=== PATIENT | female | born 1995 | race Caucasian/White ===

== ENCOUNTER 2016-06-15 11:34 | Emergency (ER) | payer OTHER ==
[2016-06-15 20:00] LABS: Hematocrit 39 % (35-47); Hemoglobin 13.1 g/dl (12.0-16.0); Mean Corpuscular HGB Conc 33 g/dl (31-36); Mean Corpuscular Hemoglobin 29 pg (27-31); Mean Corpuscular Volume 88 fL (80-97); Mean Platelet Volume 8 um3 (7.4-10.4); Red Cell Distribution Width 13 % (10.5-15); White Blood Count 11.3 10^3/ul (3.5-10.8)
[2016-06-15 20:19] LABS: ALT 10 U/L (7-52); AST 15 U/L (13-39); Albumin 4.1 g/dL (3.2-5.2); Alkaline Phosphatase 70 U/L (34-104); Anion Gap 5 mmol/L (2-11); BUN/Creatinine Ratio 21.7 (8-20); Blood Urea Nitrogen 13 mg/dL (6-24); CO2 Carbon Dioxide 27 mmol/L (22-32); Calcium 9.4 mg/dL (8.6-10.3); Chloride 104 mmol/L (101-111); Creatine Kinase 64 U/L (10-223); EGFR African American 163.9 (>60); EGFR Non-African American 127.5 (>60); Globulin 3.3 g/dL (2-4); Glucose 84 mg/dL (70-100); Potassium 3.9 mmol/L (3.5-5.0); Sodium 136 mmol/L (133-145); Total Protein 7.4 g/dL (6.4-8.9)
[2016-06-15 20:21] LABS: Troponin I 0.01 ng/mL (<0.04)
--- NOTE | 2016-06-15 20:24 | RAD ---
Indication: Chest pain. Single frontal view of the chest performed at 1953 hours was reviewed. No prior study is available for comparison. No mediastinal shift is noted. Heart is of normal size and configuration. Lung ac appear clear. IMPRESSION: NO ACTIVE CARDIOPULMONARY DISEASE IS NOTED.
[2016-06-15] MEDS ORDERED: Iohexol 350* (CONTRAST) 500 ML MDV IV ONE (20:30)
--- NOTE | 2016-06-15 22:38 | RAD ---
Indication: Chest pain. CTA of the chest was performed after IV contrast administration. 71 mL of Omnipaque 350 was given according to hospital protocol. Coronal and sagittal reconstructed images were obtained. Pulmonary arterial tree is well opacified. No filling defects are noted to suggest pulmonary embolus. Aorta demonstrates no evidence of aortic dissection or aneurysmal dilatation. There is no mediastinal or hilar adenopathy noted. The trachea and major bronchi appear patent. The lung ac demonstrate no evidence of alveolar consolidation. No pleural fluid is identified. The visualized abdominal organs are unremarkable. IMPRESSION: No evidence of pulmonary emboli is noted.
[2016-06-15 23:38] VITALS: BP 108/65
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
== END 2016-06-15 23:37 | disposition home or self-care (01) ==
LOC: ED 11:34
DX: R07.9 Chest pain, unspecified (principal); R06.02 Shortness of breath; F17.210 Nicotine dependence, cigarettes, uncomplicated
CPT/HCPCS: 36415; 71010; 71275; 80053; 82550; 82553; 83605; 83874; 83880; 84484; 84702; 85025; 85610; 85730; 93005; 99282; Q9967

== ENCOUNTER 2016-06-30 21:35 | Emergency (ER) | payer OTHER ==
--- NOTE | 2016-06-30 22:14 | RAD ---
INDICATION: Head injury, headache. COMPARISON: There are no prior studies available for comparison. TECHNIQUE: Contiguous axial sections of the brain were obtained from the skull base to the vertex without contrast. FINDINGS: The ventricles, cisterns and sulci are within normal limits. No significant focal abnormality or mass effect is seen. There is no evidence for hemorrhage. No significant focal osseous abnormality is seen. The visualized portion of the paranasal sinuses and mastoid air cells appear clear. IMPRESSION: NO EVIDENCE FOR ACUTE INTRACRANIAL ABNORMALITY.
[2016-06-30] MEDS ORDERED: Ibuprofen TAB* 600 MG PO ONE (22:19)
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
--- NOTE | 2016-06-30 22:34 | RAD ---
INDICATION: Right hand injury. TECHNIQUE: 3 views of the right hand were obtained. FINDINGS: The bones are in normal alignment. No acute fracture is seen. There is deformity of the base of the distal phalanx of the ring finger likely related to an old healed fracture. Joint spaces appear maintained. IMPRESSION: NO EVIDENCE FOR ACUTE FRACTURE.
[2016-06-30 23:07] VITALS: BP 126/77
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
== END 2016-06-30 23:05 | disposition home or self-care (01) ==
LOC: ED 21:35
DX: M54.2 Cervicalgia (principal); F32.9 Major depressive disorder, single episode, unspecified; Z72.0 Tobacco use; V47.5XXA Car driver injured in collision with fixed or stationary object in traffic accident, initial encounter; Y92.410 Unspecified street and highway as the place of occurrence of the external cause; J45.909 Unspecified asthma, uncomplicated; Z86.711 Personal history of pulmonary embolism
CPT/HCPCS: 70450; 72125; 99284; A9270-GY

== ENCOUNTER 2017-06-03 11:51 | Emergency (ER) | payer OTHER ==
[2017-06-03 13:07] LABS: ABS Basophils 0.1 10^3/ul (0-0.2); ABS Eosinophils 0.1 10^3/ul (0-0.6); ABS Lymphocytes 2.1 10^3/ul (1.0-4.8); ABS Monocytes 0.7 10^3/ul (0-0.8); ABS Neutrophils 5.2 10^3/ul (1.5-7.7); ABS Nucleated RBC 0 10^3/ul; Eosinophil % 1.4 % (0-6); Hematocrit 35 % (35-47); Hemoglobin 11.9 g/dl (12.0-16.0); Lymphocyte % 25.5 % (25-47); Mean Corpuscular HGB Conc 34 g/dl (31-36); Mean Corpuscular Hemoglobin 29 pg (27-31); Mean Corpuscular Volume 87 fL (80-97); Mean Platelet Volume 8 um3 (7.4-10.4); Nucleated Red Blood Cells % 0; Platelet Count 236 10^3/ul (150-450); Red Blood Count 4.04 10^6/ul (4.0-5.4); Red Cell Distribution Width 13 % (10.5-15); White Blood Count 8.2 10^3/ul (3.5-10.8)
[2017-06-03 13:31] LABS: Urine Appearance Clear; Urine Blood 1+ (Negative); Urine Color Straw; Urine Ketones Negative (Negative); Urine Protein Negative (Negative); Urine Specific Gravity 1.004 (1.010-1.030); Urine Urobilinogen Negative (Negative)
[2017-06-03 13:41] LABS: EGFR Non-African American 187.2 (>60)
[2017-06-03 16:05] VITALS: BP 114/65
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
== END 2017-06-03 16:05 | disposition home or self-care (01) ==
LOC: ED 11:51
DX: J40 Bronchitis, not specified as acute or chronic (principal); R05 Cough; F17.210 Nicotine dependence, cigarettes, uncomplicated; R07.9 Chest pain, unspecified; R06.2 Wheezing
CPT/HCPCS: 36415; 80053; 81003; 81015; 84484; 84702; 85025; 85379; 86140; 87086; 87502; 93005; 99282

== ENCOUNTER 2017-10-12 20:40 | Emergency (ER) | payer OTHER ==
[2017-10-12] MEDS ORDERED: PREMIX* 0 ML with Acetaminophen IV 1GM/100ML * 1,000 MG IVPB ONE ×2 (21:14)
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
[2017-10-12 22:26] LABS: ABS Basophils 0 10^3/ul (0-0.2); ABS Eosinophils 0.1 10^3/ul (0-0.6); ABS Lymphocytes 2.7 10^3/ul (1.0-4.8); ABS Monocytes 0.9 10^3/ul (0-0.8); ABS Neutrophils 10.5 10^3/ul (1.5-7.7); ABS Nucleated RBC 0 10^3/ul; Hematocrit 32 % (35-47); Lymphocyte % 19.2 % (25-47); Mean Corpuscular HGB Conc 34 g/dl (31-36); Mean Corpuscular Hemoglobin 30 pg (27-31); Mean Corpuscular Volume 89 fL (80-97); Mean Platelet Volume 7.1 um3 (7.4-10.4); Nucleated Red Blood Cells % 0; Platelet Count 308 10^3/ul (150-450); Red Blood Count 3.65 10^6/ul (4.0-5.4); Red Cell Distribution Width 13 % (10.5-15); White Blood Count 14.3 10^3/ul (3.5-10.8)
[2017-10-12 22:45] LABS: EGFR Non-African American 171.5 (>60)
[2017-10-12 23:59] VITALS: BP 110/74
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
== END 2017-10-12 23:59 | disposition home or self-care (01) ==
LOC: ED 20:40
DX: T74.11XA Adult physical abuse, confirmed, initial encounter (principal); Y07.03 Male partner, perpetrator of maltreatment and neglect; O26.892 Other specified pregnancy related conditions, second trimester; R10.9 Unspecified abdominal pain; Z3A.27 27 weeks gestation of pregnancy; Z87.891 Personal history of nicotine dependence
CPT/HCPCS: 36415; 76815; 80053; 83690; 84702; 85025; 96360; 99283

== ENCOUNTER 2017-12-27 01:59 | Inpatient (IN) | payer OTHER ==
[2017-12-27] MEDS ORDERED: Nalbuphine* 10 MG/ML 1 ML VIAL IM ONE (04:00)
[2017-12-27] MEDS ORDERED: Promethazine INJ(RESTRICTED)* 25 MG/ML 1 ML VIAL IM ONE (04:00)
[2017-12-27 08:24] LABS: Hematocrit 35 % (35-47); Hemoglobin 11.9 g/dl (12.0-16.0); Mean Corpuscular HGB Conc 34 g/dl (31-36); Mean Corpuscular Hemoglobin 30 pg (27-31); Mean Corpuscular Volume 88 fL (80-97); Mean Platelet Volume 8.3 um3 (7.4-10.4); Platelet Count 264 10^3/ul (150-450); Red Blood Count 3.97 10^6/ul (4.00-5.40); Red Cell Distribution Width 14 % (10.5-15); White Blood Count 15.5 10^3/ul (3.5-10.8)
--- NOTE | 2017-12-27 08:47 | HP ---
General Information - Reason for Visit active labor - General Information Maternal Age: 22 Grav: 3 Para: 1 SAB: 1 IEA: 0 Estimated Due Date: 01/02/18 Determined By: Early Ultrasound Maternal Blood Type and Rh: A Positive - Results this Serology/RPR Result: Non-Reactive Rubella Result: Non-Immune HBsAg Result: Negative HIV Result: Negative GBS Culture Result: Negative Past Medical History Delivery History: Hx Uncomplicated Vaginal Delivery Pertinent Past Medical History: See Records - hx depression, hx anxiety, migraines, asthma Review of Systems Constitutional: Uncomfortable CV Complaint: No Respiratory: Shortness of Breath: No Gastrointestinal: No Nausea/Vomiting, Normal Bowel Movement Genitourinary: No Dysuria, No Bleeding, No Leaking Fluid Musculoskeletal: Contractions Neurological: No Headache, No Visual Changes Movement: Normal Exam Allergies/Adverse Reactions: Allergies No Known Allergies Allergy (Verified 12/27/17 02:54) T:98.2, P:83, R:18, BP: 112/73, O2:100% Lab Values - Entire Visit: Laboratory Tests 12/27/17 12/27/17 02:15 08:05 WBC 15.5 H RBC 3.97 L Hgb 11.9 L Hct 35 MCV 88 MCH 30 MCHC 34 RDW 14 Plt Count 264 MPV 8.3 Urine Opiates Screen None detected Ur Barbiturates Screen None detected Ur Phencyclidine Scrn None detected Ur Amphetamines Screen None detected U Benzodiazepines Scrn None detected Urine Cocaine Screen None detected U Cannabinoids Screen None detected - Measurements Height: 5 ft 4 in Weight: 200 lb Weight in lbs: [phone] Body Mass Index (BMI): 34.3 Pre- Weight: 140 lb Weight Gained This : 60 lbs and 0 ozs - Exam Breast: Breast Exam Deferred CVA: No CVA Tenderness Extremities: No Edema Heart: Normal Rhythm/Heart Sounds HEENT: No Significant Findings Lungs: Clear Bilaterally Rectal: Rectal Exam Deferred Reflexes: DTR 2+ Thyroid: No Thyromegaly - Abdominal Exam Abdomen Exam: Fundal Height Consistent with Dates - Ultrasound/Biophysical Profile Ultrasound Status: Not Done Targeted Exam Findings Estimated Weight: 7lbs Presenting Part: Vertex Membrane Status: Intact Bleeding/Discharge: Bloody Show EFM Findings - External Monitor Findings Baseline Heart Rate: 120 External Monitor Findings: Accelerations Present, No Pattern of Variable or Late Decelerations, Variability Moderate, Baseline Stable Contractions: Regular, Moderate, 45-90 Seconds Contraction Frequency: 4 Assessment/Plan - Assessment 22 y.o active labor - Obstetrical Risk Factors Obstetrical Risk Factors: Tobacco Use, Psychosocial Issues - Plan Plan: Admit - Anticipate Vaginal Delivery - Date/Time of Admission Date of Admission: 12/27/17 Time of Admission: 07:55
[2017-12-27] MEDS ORDERED: Oxytocin in LR* 20 UNITS/1,000 ML BAG IVPB ONE (08:55)
--- NOTE | 2017-12-27 09:14 | PROCNOTE ---
[facility] OB: Delivery Note - Delivery A Date of : 12/27/17 Time of : 08:59 Sex: Female Score 1 Minute: 8 Score 5 Minutes: 9 Gestational Age in Weeks and Days at Delivery: 39 Weeks and 1 Days Delivery Method: Spontaneous Vaginal Did Patient attempt ?: N/A, No Previous Amniotic Fluid: Clear Estimated Blood Loss: 200 Anesthesia/Analgesia: IM/IV Delivered By: Katrin Lisa - Nursery Level of Nursery: Regular/Bedside - Perineum Perineal Injury: Abrasion Only - Not Repaired - Events Delivery Events of Note: Pitocin Only After Delivery Delivery Events of Note Comment: Right nuchal arm
[2017-12-27] MEDS ORDERED: Witch Hazel PAD* JAR TOPICAL PRN (09:15)
[2017-12-27] MEDS ORDERED: Acetaminophen TAB* 325 MG PO PRN (09:15)
[2017-12-27] MEDS ORDERED: Glycerin ADULT SUPP PR PRN (09:15)
[2017-12-27] MEDS ORDERED: Dibucaine 1% 28.35 GM TUBE PR PRN (09:15)
[2017-12-27] MEDS ORDERED: Oxytocin in LR* 20 UNITS/1,000 ML BAG IVPB SCH (10:00)
[2017-12-27] MEDS ORDERED: Simethicone TAB* 80 MG TAB.CHEW PO SCH (12:30)
[2017-12-27] MEDS: Docusate CAP* 100 MG PO SCH ×2 (13:39→20:35)
[2017-12-27] MEDS: Ibuprofen TAB* 600 MG PO PRN ×2 (13:39→20:35)
[2017-12-28 07:02] LABS: ABS Basophils 0.1 10^3/ul (0-0.2); ABS Eosinophils 0.2 10^3/ul (0-0.6); ABS Lymphocytes 4.3 10^3/ul (1.0-4.8); ABS Neutrophils 7.5 10^3/ul (1.5-7.7); ABS Nucleated RBC 0 10^3/ul; Eosinophil % 1.4 % (0-6); Hematocrit 35 % (35-47); Hemoglobin 11.9 g/dl (12.0-16.0); Lymphocyte % 32.9 % (25-47); Mean Corpuscular HGB Conc 34 g/dl (31-36); Mean Corpuscular Hemoglobin 30 pg (27-31); Mean Corpuscular Volume 88 fL (80-97); Mean Platelet Volume 8.3 um3 (7.4-10.4); Nucleated Red Blood Cells % 0; Platelet Count 258 10^3/ul (150-450); Red Blood Count 3.96 10^6/ul (4.00-5.40); Red Cell Distribution Width 14 % (10.5-15); White Blood Count 13.1 10^3/ul (3.5-10.8)
[2017-12-28] MEDS: Ibuprofen TAB* 600 MG PO PRN (07:54)
[2017-12-28] MEDS: Docusate CAP* 100 MG PO SCH (07:54)
[2017-12-28] MEDS ORDERED: Ferrous Gluconate TAB* 324 MG TAB PO SCH (09:00)
[2017-12-28 09:41] VITALS: BP 102/64
== END 2017-12-28 14:34 | disposition home or self-care (01) | DRG 560 ==
LOC: MCHOBOUT 01:59 → MCHOB 07:55
PROVIDERS: ADMIT Midwife; ATTEND Midwife
PROC: 10E0XZZ Delivery of Products of Conception, External Approach (ICD-10-PCS; principal; 2017-12-27)
PROC: 0HQ9XZZ Repair Perineum Skin, External Approach (ICD-10-PCS; 2017-12-27)
DX: O99.334 Smoking (tobacco) complicating childbirth (principal); O99.344 Other mental disorders complicating childbirth; F41.8 Other specified anxiety disorders; O71.82 Other specified trauma to perineum and vulva; O32.6XX0 Maternal care for compound presentation, not applicable or unspecified; F32.9 Major depressive disorder, single episode, unspecified; O99.52 Diseases of the respiratory system complicating childbirth; J45.909 Unspecified asthma, uncomplicated; O99.324 Drug use complicating childbirth; F12.10 Cannabis abuse, uncomplicated; Z3A.39 39 weeks gestation of pregnancy; Z37.0 Single live birth
CPT/HCPCS: 36415; 80307; 85025; 85027; 86850; 86900; 86901; A9270-GY; J2300; J2550

== ENCOUNTER 2018-01-31 09:45 | Emergency (ER) | payer OTHER ==
[2018-01-31 11:01] VITALS: BP 120/80
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
== END 2018-01-31 11:38 | disposition home or self-care (01) ==
LOC: UCCORT 09:45
DX: J02.8 Acute pharyngitis due to other specified organisms (principal); J06.9 Acute upper respiratory infection, unspecified; Z87.891 Personal history of nicotine dependence
CPT/HCPCS: 87070; 87651; 99212; G0463

== ENCOUNTER 2018-08-14 16:40 | Emergency (ER) | payer OTHER ==
[2018-08-14] MEDS ORDERED: NS 0.9% 1000 ML** 1,000 ML IV ONE (19:16)
[2018-08-14 19:38] LABS: Urine Appearance Cloudy; Urine Bilirubin Negative (Negative); Urine Blood Negative (Negative); Urine Color Yellow; Urine Glucose Negative (Negative); Urine Ketones 1+ (Negative); Urine Nitrite Negative (Negative); Urine Protein Negative (Negative); Urine Specific Gravity 1.019 (1.010-1.030); Urine Urobilinogen Negative (Negative)
[2018-08-14 19:48] LABS: ABS Basophils 0 10^3/ul (0-0.2); ABS Eosinophils 0.1 10^3/ul (0-0.6); ABS Lymphocytes 3.3 10^3/ul (1.0-4.8); ABS Monocytes 0.9 10^3/ul (0-0.8); ABS Neutrophils 11.3 10^3/ul (1.5-7.7); ABS Nucleated RBC 0 10^3/ul; Eosinophil % 0.9 %; Hematocrit 34 % (33-41); Hemoglobin 11.3 g/dL (12.0-16.0); Lymphocyte % 21.2 %; Mean Corpuscular HGB Conc 33 g/dL (31-36); Mean Corpuscular Hemoglobin 29 pg (27-31); Mean Corpuscular Volume 89 fL (80-97); Mean Platelet Volume 7.8 fL (7.4-10.4); Nucleated Red Blood Cells % 0.1; Platelet Count 296 10^3/uL (150-450); Red Blood Count 3.84 10^6 /uL (3.70-4.87); Red Cell Distribution Width 13 % (10.5-15); White Blood Count 15.8 10^3/uL (3.5-10.8)
[2018-08-14 19:56] LABS: INR 0.94 (0.77-1.02)
[2018-08-14 19:57] LABS: Albumin 3.6 g/dL (3.2-5.2); Albumin/Globulin Ratio 1.2 (1-3); BUN/Creatinine Ratio 10.3 (8-20); C Reactive Protein 6.14 mg/L (<8.01); Calcium 8.8 mg/dL (8.6-10.3); EGFR African American 248.7 (>60); EGFR Non-African American 205.5 (>60); Potassium 3.7 mmol/L (3.5-5.0); Total Bilirubin 0.2 mg/dL (0.2-1.0); Total Protein 6.6 g/dL (6.4-8.9)
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
[2018-08-14 20:01] LABS: CKMB ng/mL 1.5 ng/mL (0.6-6.3)
[2018-08-14] MEDS ORDERED: Iohexol 350* (CONTRAST) 500 ML MDV IV ONE (20:01)
[2018-08-14 21:50] LABS: Influenza A Molecular NEGATIVE (Negative); Influenza B Molecular NEGATIVE (Negative)
[2018-08-14 22:58] VITALS: BP 104/64
== END 2018-08-14 22:58 | disposition home or self-care (01) ==
LOC: ED 16:40
DX: Z34.93 Encounter for supervision of normal pregnancy, unspecified, third trimester (principal); R05 Cough; R07.9 Chest pain, unspecified; R60.9 Edema, unspecified; H53.8 Other visual disturbances; R06.02 Shortness of breath; F17.210 Nicotine dependence, cigarettes, uncomplicated
CPT/HCPCS: 36415; 71275; 80053; 81003; 82550; 82553; 83605; 84484; 85025; 85610; 85730; 86140; 86850; 86900; 86901; 93005; 96360; 99284; Q9967

== ENCOUNTER 2018-08-26 10:47 | Emergency (ER) | payer OTHER ==
[2018-08-26 12:20] VITALS: BP 136/71
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
== END 2018-08-26 13:28 | disposition home or self-care (01) ==
LOC: UCCORT 10:47
DX: O99.89 Other specified diseases and conditions complicating pregnancy, childbirth and the puerperium (principal); M65.832 Other synovitis and tenosynovitis, left forearm; F17.210 Nicotine dependence, cigarettes, uncomplicated; Z3A.30 30 weeks gestation of pregnancy
CPT/HCPCS: 99213; G0463

== ENCOUNTER 2018-11-05 00:38 | Inpatient (IN) | payer OTHER ==
[2018-11-05 01:15] LABS: Hematocrit 34 % (35-47); Hemoglobin 11.5 g/dL (12.0-16.0); Mean Corpuscular HGB Conc 34 g/dL (31-36); Mean Corpuscular Hemoglobin 29 pg (27-31); Mean Corpuscular Volume 86 fL (80-97); Mean Platelet Volume 8.1 fL (7.4-10.4); Platelet Count 248 10^3/uL (150-450); Red Blood Count 3.99 10^6 /uL (3.70-4.87); Red Cell Distribution Width 14 % (10-15); White Blood Count 16.2 10^3/uL (3.5-10.8)
[2018-11-05] MEDS ORDERED: Buffered Lidocaine 1% SYRIN* 1 ML/SYRINGE INTRADERM ONE (01:15)
[2018-11-05] MEDS ORDERED: Lactated Ringers 1000 ML Bag* 1,000 ML IV ONE (01:15)
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
[2018-11-05 01:32] LABS: Albumin 3.4 g/dL (3.2-5.2); Albumin/Globulin Ratio 1.1 (1-3); EGFR African American 170.8 (>60); EGFR Non-African American 141.2 (>60); Globulin 3.2 g/dL (2-4); Potassium 3.8 mmol/L (3.5-5.0); Total Bilirubin 0.2 mg/dL (0.2-1.0); Total Protein 6.6 g/dL (6.4-8.9)
[2018-11-05] MEDS ORDERED: Oxytocin in LR* 20 UNITS/1,000 ML BAG IVPB ONE (01:32)
[2018-11-05] MEDS ORDERED: Acetaminophen TAB* 325 MG PO PRN (01:41)
[2018-11-05] MEDS ORDERED: Glycerin ADULT SUPP PR PRN (01:41)
--- NOTE | 2018-11-05 01:43 | PROCNOTE ---
[facility]: Delivery Note - Delivery A Date of : 11/05/18 Time of : 01:28 Sex: Female Score 1 Minute: 8 Score 5 Minutes: 9 Gestational Age in Weeks and Days at Delivery: 39 Weeks and 1 Days Delivery Method: Spontaneous Vaginal Labor: Spontaneous Amniotic Fluid: Clear Estimated Blood Loss: 150 Anesthesia/Analgesia: None Delivered By: Katrin Lisa - Nursery Level of Nursery: Regular/Bedside - Perineum Perineal Injury: None/Intact Perineal Repair: None - Events Delivery Events of Note: Pitocin Only After Delivery
[2018-11-05] MEDS ORDERED: Oxytocin in LR* 20 UNITS/1,000 ML BAG IVPB SCH (02:00)
[2018-11-05] MEDS ORDERED: Lactated Ringers 1000 ML Bag* 1,000 ML IV SCH ×2 (02:00)
[2018-11-05] MEDS ORDERED: Famotidine IV* 10 MG/ML 2 ML (20 mg) IV SLOW PU ONE (02:34)
[2018-11-05] MEDS ORDERED: Famotidine IV* 10 MG/ML 2 ML (20 mg) ONE (02:37)
[2018-11-05] MEDS: Dibucaine 1% 28.35 GM TUBE PR PRN ×2 (03:36→17:19)
[2018-11-05] MEDS: Witch Hazel PAD* JAR TOPICAL PRN ×2 (03:36→17:19)
[2018-11-05] MEDS: Ibuprofen TAB* 600 MG PO PRN ×3 (04:30→17:19)
[2018-11-05] MEDS ORDERED: Simethicone TAB* 80 MG TAB.CHEW PO SCH (08:30)
[2018-11-05] MEDS: Docusate CAP* 100 MG PO SCH ×3 (10:20→21:33)
[2018-11-05 10:40] LABS: Urine Benzodiazepine Screen None Detected (None Detect); Urine Opiates Screen None Detected (None Detect)
[2018-11-06] MEDS: Ibuprofen TAB* 600 MG PO PRN ×3 (00:10→13:20)
[2018-11-06] MEDS: Docusate CAP* 100 MG PO SCH ×2 (07:21→13:20)
[2018-11-06 07:42] VITALS: BP 115/76
[2018-11-06 07:49] LABS: ABS Eosinophils 0.2 10^3/ul (0-0.6); ABS Lymphocytes 3.6 10^3/ul (1.0-4.8); ABS Monocytes 0.7 10^3/ul (0-0.8); ABS Neutrophils 5.4 10^3/ul (1.5-7.7); Eosinophil % 1.6 %; Hematocrit 29 % (35-47); Hemoglobin 9.9 g/dL (12.0-16.0); Lymphocyte % 36.3 %; Mean Corpuscular HGB Conc 34 g/dL (31-36); Mean Corpuscular Hemoglobin 29 pg (27-31); Mean Corpuscular Volume 86 fL (80-97); Mean Platelet Volume 7.9 fL (7.4-10.4); Nucleated Red Blood Cells % 0.2; Platelet Count 205 10^3/uL (150-450); Red Blood Count 3.36 10^6 /uL (3.70-4.87); Red Cell Distribution Width 15 % (10-15); White Blood Count 9.9 10^3/uL (3.5-10.8)
[2018-11-06] MEDS ORDERED: Ferrous Gluconate TAB* 324 MG TAB PO SCH (09:00)
== END 2018-11-06 18:14 | disposition home or self-care (01) | DRG 560 ==
LOC: MCHOBOUT 00:38 → MCHOB 01:16
PROVIDERS: ADMIT Midwife; ATTEND Midwife
PROC: 10E0XZZ Delivery of Products of Conception, External Approach (ICD-10-PCS; principal; 2018-11-05)
PROC: 10907ZC Drainage of Amniotic Fluid, Therapeutic from Products of Conception, Via Natural or Artificial Opening (ICD-10-PCS; 2018-11-05)
PROC: 4A1HXCZ Monitoring of Products of Conception, Cardiac Rate, External Approach (ICD-10-PCS; 2018-11-05)
DX: O99.344 Other mental disorders complicating childbirth (principal); Z37.0 Single live birth; F32.9 Major depressive disorder, single episode, unspecified; F41.9 Anxiety disorder, unspecified; Z3A.39 39 weeks gestation of pregnancy; Z91.410 Personal history of adult physical and sexual abuse; O90.81 Anemia of the puerperium
CPT/HCPCS: 36415; 80053; 80307; 85025; 85027; 86850; 86900; 86901; A9270-GY

== ENCOUNTER 2018-12-10 16:30 | Emergency (ER) | payer OTHER ==
[2018-12-10 17:10] VITALS: BP 105/65
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
== END 2018-12-10 17:57 | disposition home or self-care (01) ==
LOC: UCCORT 16:30
DX: O90.89 Other complications of the puerperium, not elsewhere classified (principal); L25.9 Unspecified contact dermatitis, unspecified cause; O99.335 Smoking (tobacco) complicating the puerperium; F17.210 Nicotine dependence, cigarettes, uncomplicated
CPT/HCPCS: 99212; G0463

== ENCOUNTER 2018-12-23 13:59 | Emergency (ER) | payer OTHER ==
[2018-12-23 14:14] VITALS: BP 114/64
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
== END 2018-12-23 14:49 | disposition home or self-care (01) ==
LOC: UCCORT 13:59
DX: J06.9 Acute upper respiratory infection, unspecified (principal); F17.210 Nicotine dependence, cigarettes, uncomplicated
CPT/HCPCS: 87651; 99212; G0463

== ENCOUNTER → 2018-12-25 09:42 | Day surgery (SDC) | payer OTHER ==
[~2018-12-25 09:42] MED LIST: Buffered Lidocaine 1% SYRIN* 1 ML/SYRINGE INTRADERM ONE; Bupivacaine 0.5% W/EPI SDV* 30 ML VIAL ONE; Dexamethasone IV* 4 MG/ML 1 ML (4 MG) IV SLOW PU ONE; Dexamethasone IV* 4 MG/ML 1 ML (4 MG) ONE; DiMENhydriNATE IV* 50 MG/ML VIAL IV PUSH PRN; DiMENhydriNATE IV* 50 MG/ML VIAL ONE; EPHEDrine (Pressors)* 50 MG/ML VIAL ONE; Famotidine IV* 10 MG/ML 2 ML (20 mg) IV ONE; Famotidine IV* 10 MG/ML 2 ML (20 mg) ONE; HYDROcodone/ACETAMIN 5-325 MG* 1 TAB PO PRN; Ketorolac INJ* 30 MG/ML 1 ML VIAL IV PRN; Lactated Ringers 1000 ML Bag* 1,000 ML IV SCH; Lidocaine 2% PF * 5 ML VIAL ONE; Midazolam* 1 MG/ML 5 ML VIAL (5 MG) ONE; Naloxone* 0.4 MG/ML 1 ML VIAL IV PRN; Ondansetron INJ* 2 MG/ML VIAL ONE; Propofol* 10 MG/ML 20 ML BTL ONE; Succinylcholine* 20 MG/ML 10 ML VIAL ONE; ceFOXitin 2 GM IVPREMIX* 2 GM/50 ML BAG IVPB ONE; ceFOXitin 2 GM IVPREMIX* 2 GM/50 ML BAG ONE; fentaNYL* 50 MCG/ML 2 ML VIAL (100 MCG VIAL) ONE; oxyCODONE/Acetamin 5/325 MG* TAB ONE; oxyCODONE/Acetamin 5/325 MG* TAB PO PRN
[2018-12-25] MEDS: fentaNYL* 50 MCG/ML 2 ML VIAL (100 MCG VIAL) IV PRN ×3 (14:06→14:29)
[2018-12-25 15:16] VITALS: BP 130/88
--- NOTE | 2018-12-31 16:07 | OP ---
DATE OF OPERATION: 12/25/18 [facility] DATE OF : [birth year] SURGEON: Avel Gordillo MD ANESTHESIA: General anesthetic with endotracheal intubation. PRE-OP DIAGNOSIS: The patient desires permanent surgical sterilization. POST-OP DIAGNOSIS: The patient desires permanent surgical sterilization. OPERATIVE PROCEDURE: Laparoscopic bilateral tubal ligation with Filshie clips. ESTIMATED BLOOD LOSS: Less than 5 cc. SPECIMEN SENT TO PATHOLOGY: None. IV FLUIDS: She received 1100 cc of IV crystalloid fluid. URINE OUTPUT: 600 cc of clear urine. FINDINGS: The patient was noted to have a normal uterus, normal adnexa, normal bowel and bladder laparoscopically. She was also noted to have a midline fundal uterine perforation was noted. It was not bleeding throughout the procedure and observed as I removed the air from the patient's abdomen and there was no bleeding from the noted perforation. DESCRIPTION OF PROCEDURE: The patient was taken to the operating room where she was identified. She was placed on the operating table where a general anesthetic with endotracheal intubation was obtained without difficulty. She was then placed in the dorsal lithotomy position, prepped and draped in a normal sterile fashion. Attention was then brought on to the patient's perineum. She had an exam under anesthesia which revealed anteverted uterus of normal size, shape, and contour with no adnexal masses. The bladder was then catheterized with a Lopez catheter and drained of clear urine. I proceeded to place a speculum into the patient's vagina. The cervix was identified. It was grasped with a single-tooth tenaculum at the anterior lip of the cervix. I then proceeded to sound the uterus which sounded to about 9 cm in an anteverted position. The cervix was noted to be a bit stenotic for me to introduce a ClearView uterine manipulator, so I proceeded to dilate the cervix with Hegar dilators. At one point, I noticed the dilator was introduced further than 10 cm , about 11 cm in total, since I had marked the dilators at 10 cm each which made me suspicious of the possible perforation. There was no bleeding. I was able to introduce the uterine manipulator without difficulty and the balloon in manipulator was insufflated with 3 cc of sterile water. I then removed the speculum from the patient's vagina as well as the single-tooth tenaculum from the cervix. Attention was then brought on to the patient's abdomen where a 1 cm infraumbilical skin incision was made with a knife and carried through to the underlying layer of fascia. The fascia was grasped with Frantz clamps, brought out to the incision, incised medially with a knife. Entry into the patient's abdomen through the peritoneum was confirmed using a Morenita clamp. Through this incision, a 10 mm blunt trocar was introduced. The balloon in the trocar was insufflated with about 20 cc of air and this kept the trocar in place. At this point, the patient's abdomen was insufflated with CO2 gas. She was placed in the Trendelenburg position. I then proceeded to take a survey of the patient's pelvic organs and I did notice that there was a small, non- bleeding perforation at the midline of the fundus of the uterus. I did not observe the uterine manipulator tip protrude through this perforation as I manipulated the uterus and moved it. I then proceeded to introduce another trocar 4 cm above symphysis pubis under direct visualization. Through this trocar, a Filshie clip applicator was introduced and fallopian tubes were grasped at the medial aspect of the tube length and Filshie clips were applied with complete occlusion of the fallopian tube circumferentially. Once the Filshie clips were applied, I proceeded to take another look at the uterine perforation. There was still no bleeding noted. I removed the suprapubic trocar, and as I removed the air from the patient's abdomen, I maintained visualization of the uterine fundus and there was no bleeding noted. I then proceeded to removed all the instruments from the patient's abdomen. The umbilical fascia was closed with 0 Polysorb suture in running fashion, and all the skin incisions were closed umbilical and suprapubic with 4-0 Monocryl subcuticular stitches. The uterine manipulator as well as the Lopez catheter were removed from the patient's abdomen. There was no vaginal bleeding noted. The patient tolerated the procedure well. Sponge, lap, and needle counts were correct x2. She was then transferred to recovery room area in stable condition. [id number]/[facility] #: [id number] MTDD
== END | disposition home or self-care (01) ==
LOC: OR 09:42
PROVIDERS: ATTEND Obstetrics & Gynecology
DX: Z30.2 Encounter for sterilization (principal); J45.909 Unspecified asthma, uncomplicated; F41.8 Other specified anxiety disorders; Z87.891 Personal history of nicotine dependence
CPT/HCPCS: A9270-GY; C1776; J0330; J0694; J1100; J1240; J2250; J2405; J2704; J3010